=== PATIENT | male | born 1955 | race American Indian/Alaskan Native ===

== ENCOUNTER 2018-09-26 22:20 | Emergency (ER) | payer BC, OTHER ==
[2018-09-26 22:21] VITALS: BMI 31.2
[2018-09-26 22:29] VITALS: BP 166/95; PULSE 66; RESP 18; TEMP 98.9; O2SAT 98
--- NOTE | 2018-09-26 22:53 | C.PDOC ---
History Of Present Illness 63 year old male presents to the ED for evaluation of rash to the left side of his face. Patient reports area initially looked like a pimple, now became rough. 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 Patient denies fever, chills, SON, facial swelling, lip swelling, tongue swelling. Time Seen by Provider: 09/26/18 22:38 Chief Complaint (Nursing): Abnormal Skin Integrity History Per: Patient History/Exam Limitations: no limitations Onset/Duration Of Symptoms: Hrs Current Symptoms Are (Timing): Still Present Location Of Injury: Left: Face Quality Of Symptoms: Painful, Swollen Recent travel outside of the [place]: No Additional History Per: Patient Past Medical History Reviewed: Historical Data, Nursing Documentation, Vital Signs Vital Signs: Last Vital Signs Temp 98.9 F 09/26/18 22:25 Pulse 66 09/26/18 22:25 Resp 18 09/26/18 22:25 BP 166/95 H 09/26/18 22:25 Pulse Ox 98 09/26/18 22:25 Primary Care Provider: Non [facility] Provider, - Medical History PMH: HTN Surgical History: No Surg Hx Family History: States: Unknown Family Hx - Social History Hx Tobacco Use: Yes Hx Alcohol Use: No Hx Substance Use: Yes - Immunization History Hx Tetanus Toxoid Vaccination: No Hx Influenza Vaccination: No Hx Pneumococcal Vaccination: No Review Of Systems Constitutional: Negative for: Fever, Chills ENT: Negative for: Mouth Swelling, Throat Swelling Respiratory: Negative for: Shortness of Breath, Wheezing Gastrointestinal: Negative for: Nausea, Vomiting Skin: Positive for: Rash Neurological: Negative for: Weakness, Numbness, Headache Physical Exam - Physical Exam Appears: Non-toxic, No Acute Distress Skin: Warm, Dry, Rash (well developed, hyperpigmented circular rash to left periauricular area. Superimposed induration. No fluctuance.) Head: Atraumatic, Normacephalic Eye(s): bilateral: Normal Inspection Ear(s): Bilateral: Normal Oral Mucosa: Moist Tongue: No Swelling Lips: No Swelling Throat: Normal, No Erythema, No Exudate Neck: Normal ROM, Supple Lymphatic: No Adenopathy Neurological/Psych: Oriented x3, Normal Speech, Normal Cognition Gait: Steady ED Course And Treatment O2 Sat by Pulse Oximetry: 98 (ON RA) Pulse Ox Interpretation: Normal Progress Note: Patient was given prescription for antibiotics and advised to follow up with PMD. Disposition - Disposition Disposition: HOME/ ROUTINE Disposition Time: 22:53 Condition: STABLE Additional Instructions: Please use medications as prescribed. May apply warm compress to area Return to ER if worse Prescriptions: Clotrimazole 1% Cream [Lotrimin 1%] 1 appl TP BID #60 g Doxycycline Hyclate 100 mg PO BID #14 capsule Instructions: Folliculitis (DC), Ringworm (DC) Forms: [employer] (Korean) - Clinical Impression Clinical Impression: Facial ringworm, Folliculitis guillaume - PA / SIDE GUIDER / Resident Statement MD/DO has reviewed & agrees with the documentation as recorded. - Scribe Statement The provider has reviewed the documentation as recorded by the Scribcodey Watts All medical record entries made by the Milyibcodey were at my direction and personally dictated by me. I have reviewed the chart and agree that the record accurately reflects my personal performance of the history, physical exam, medical decision making, and the department course for this patient. I have also personally directed, reviewed, and agree with the discharge instructions and disposition.
== END 2018-09-26 23:17 | disposition home or self-care (01) ==
LOC: C.ER 22:20
DX: B35.8 Other dermatophytoses (principal); L73.8 Other specified follicular disorders